=== PATIENT | male | born 1975 | race African-American/Black ===

== ENCOUNTER 2020-06-21 19:46 | Emergency (ER) | payer OTHER ==
[2020-06-21] MEDS ORDERED: SODIUM CHLORIDE 0.9% 1,000 ML IV STA (20:42)
--- NOTE | 2020-06-21 20:42 | ED Physician Documentation ---
PD HPI PED ILLNESS - Stated complaint Stated Complaint: WEAKNESS - Chief complaint Chief Complaint: General - History obtained from History obtained from: Patient - Additional information Additional information: He became acutely ill today with body aches, fever. His is also sick and she became symptomatic today as well. She was exposed to a viral illness, she cares for children. Those children tested negative for Covid though. There are 3-year-old son is also sick today. He has no underlying health problems and declines medications for his symptoms at this juncture. Review of Systems Constitutional: reports: Fever, Chills, Myalgias Nose: denies: Rhinorrhea / runny nose Respiratory: denies: Dyspnea, Cough PD PAST MEDICAL HISTORY - Present Medications Home Medications: Ambulatory Orders Medication Instructions Recorded Confirmed No Known Home Medications 06/21/20 06/21/20 - Allergies Allergies/Adverse Reactions: Allergies Allergy/AdvReac Type Severity Reaction Status Date / Time No Known Drug Allergies Allergy Verified 06/21/20 20:46 PD ED PE NORMAL - Vitals Vital signs reviewed: Yes - General General: Alert and oriented X 3, No acute distress - Neck Neck: Supple, no meningeal sign - Derm Derm: No rash - Neuro Neuro: Alert and oriented X 3, Normal speech Results - Vitals Vitals: Vital Signs - 24 hr 06/21/20 06/21/20 19:52 19:56 Temperature 38.5 C H 38.6 C H Heart Rate 101 H 82 Respiratory 20 16 Rate Blood Pressure 126/81 H 120/80 O2 Saturation 98 98 Oxygen O2 Source Room air - Labs Labs: Laboratory Tests 06/21/20 20:20 Nasal Adenovirus (PCR) NOT DETECTED Nasal B. parapertussis DNA (PCR) NOT DETECTED Nasal Coronavir 229E PCR NOT DETECTED Nasal Coronavir HKU1 PCR NOT DETECTED Nasal Coronavir NL63 PCR NOT DETECTED Nasal Coronavir OC43 PCR NOT DETECTED Nasal Enterovir/Rhinovir PCR NOT DETECTED Nasal Influenza B PCR NOT DETECTED Nasal Influenza A PCR NOT DETECTED Nasal Parainfluen 1 PCR NOT DETECTED Nasal Parainfluen 2 PCR NOT DETECTED Nasal Parainfluen 3 PCR NOT DETECTED Nasal Parainfluen 4 PCR NOT DETECTED Nasal RSV (PCR) NOT DETECTED Nasal B.pertussis DNA PCR NOT DETECTED Nasal C.pneumoniae (PCR) NOT DETECTED Alok Human Metapneumo PCR NOT DETECTED Nasal M.pneumoniae (PCR) NOT DETECTED Nasal SARS-CoV-2 (PCR) NOT DETECTED PD MEDICAL DECISION MAKING - ED course ED course: 45-year-old gentleman presents with his , seemingly a viral syndrome with fever body aches etc. Bio fire negative. Feeling better after IV fluids. Departure - Departure Disposition: 01 Home, Self Care Clinical Impression: Viral syndrome Condition: Good Record reviewed to determine appropriate education?: Yes Instructions: ED Viral Syndrome Comments: Return if worse or if not better in the next few days. Tylenol as needed for the aches and pains. Forms: Activity restrictions
[2020-06-21 21:43] LABS: C. PNEUMONIAE- RESP PCR PANEL NOT DETECTED
[2020-06-21 22:57] VITALS: BP 128/76
== END 2020-06-21 22:29 | disposition home or self-care (01) ==
LOC: ED 19:46
DX: B34.9 Viral infection, unspecified (principal); Z20.828 Contact with and (suspected) exposure to other viral communicable diseases
CPT/HCPCS: 0202U; 99282; 99283

== ENCOUNTER 2020-06-24 14:29 | Emergency (ER) | payer OTHER ==
[2020-06-24] MEDS ORDERED: SODIUM CHLORIDE 0.9% 1,000 ML IV STA ×2 (17:17→18:11)
--- NOTE | 2020-06-24 17:26 | ED Physician Documentation ---
History of Present Illness - Stated complaint Stated Complaint: FEVER,BACK PX - Chief complaint Chief Complaint: Fever PD PAST MEDICAL HISTORY - Past Medical History Past Medical History: No Musculoskeletal: Chronic back pain - Past Surgical History Past Surgical History: No - Present Medications Home Medications: Ambulatory Orders Medication Instructions Recorded Confirmed No Known Home Medications 06/21/20 06/21/20 - Allergies Allergies/Adverse Reactions: Allergies Allergy/AdvReac Type Severity Reaction Status Date / Time No Known Drug Allergies Allergy Verified 06/24/20 14:45 - Social History Does the pt smoke?: No Smoking Status: Never smoker Does the pt drink ETOH?: Yes Does the pt have substance abuse?: No - Immunizations Immunizations are current?: Yes - POLST Patient has POLST: No Results - Vitals Vitals: Vital Signs - 24 hr 06/24/20 06/24/20 14:47 16:58 Temperature 100.3 C H 98.8 C H Heart Rate 97 Respiratory 20 Rate Blood Pressure 101/71 O2 Saturation 97 Oxygen O2 Source Room air
--- NOTE | 2020-06-24 17:29 | ED Physician Documentation ---
History of Present Illness - Stated complaint Stated Complaint: FEVER,BACK PX - Chief complaint Chief Complaint: Fever - Additonal information Additional information: 45-year-old male return to the emergency department with persistent fevers myalgias chills and now diarrhea. He was seen number days ago for similar and had negative Covid testing. At that time the suspicion was that he may have a viral etiology however his symptoms have not improved since discharge home. T- max of 102.6 this afternoon for which he took Tylenol. He denies dysuria urgency or frequency. He denies any hematuria. No focal abdominal tenderness or vomiting. His diarrhea is soft and watery but nonbloody. He denies cough, congestion dyspnea or chest pain. No pertinent past surgical or medical history. He takes no routinely prescribed medications. Review of Systems Constitutional: reports: Fever, Myalgias, Fatigue Eyes: reports: Loss of vision Ears: reports: Reviewed and negative Nose: reports: Reviewed and negative Throat: reports: Reviewed and negative Cardiac: denies: Chest pain / pressure, Palpitations Respiratory: denies: Dyspnea, Cough, Hemoptysis, Wheezing GI: reports: Diarrhea. denies: Abdominal Pain, Nausea, Vomiting, Bloody / black stool : denies: Dysuria, Frequency, Hesitancy, Hematuria Skin: denies: Rash Musculoskeletal: reports: Back pain. denies: Neck pain Neurologic: denies: Generalized weakness, Numbness, Difficulty speaking, Syncope, Seizure, Headache, Head injury, LOC Psychiatric: denies: Depressed, Suicidal PD PAST MEDICAL HISTORY - Past Medical History Past Medical History: No Musculoskeletal: Chronic back pain - Past Surgical History Past Surgical History: No - Present Medications Home Medications: Ambulatory Orders Medication Instructions Recorded Confirmed No Known Home Medications 06/21/20 06/21/20 - Allergies Allergies/Adverse Reactions: Allergies Allergy/AdvReac Type Severity Reaction Status Date / Time No Known Drug Allergies Allergy Verified 06/24/20 14:45 - Social History Does the pt smoke?: No Smoking Status: Never smoker Does the pt drink ETOH?: Yes Does the pt have substance abuse?: No - Immunizations Immunizations are current?: Yes - POLST Patient has POLST: No PD ED PE EXPANDED - General General: Alert, No acute distress, Well developed/nourished - HEENT HEENT: Atraumatic, PERRL, EOMI, Moist mucous membranes, Pharynx normal. No: Swollen tonsils, Tonsillar exudate - Neck Neck: Supple w/out meningeal sx, No tenderness. No: Stiff neck, Brudzinki's, Kernig's, Adenopathy, Thyroid enlarged / mass, Soft tissue TTP, Limited ROM - Cardiac Cardiac: Regular Rate, Regular Rhythm, Radial strong equal, Pedal strong equal, Cap refill < 2 sec - Respiratory Respiratory: Clear to ausultation saloni. No: Distress, Labored - Abdomen Abdomen: Normal Bowel sounds. No: Tender to palpation - Derm Derm: Normal color. No: Rash - Neuro Neuro: Alert and Oriented X 3, CNII-XII intact - GCS Eye Opening: Spontaneous Motor: Obeys Commands Verbal: Oriented Total: 15 Results - Vitals Vitals: Vital Signs - 24 hr 06/24/20 06/24/20 06/24/20 14:47 16:58 18:21 Temperature 100.3 C H 98.8 C H 37.0 C Heart Rate 97 89 Respiratory 20 20 Rate Blood Pressure 101/71 128/77 O2 Saturation 97 99 Oxygen O2 Source Room air - Labs Labs: Laboratory Tests 06/24/20 06/24/20 06/24/20 17:29 17:29 17:29 WBC 4.6 L RBC 5.02 Hgb 14.8 Hct 44.2 MCV 88.0 MCH 29.5 MCHC 33.5 RDW 11.9 L Plt Count 97 L MPV 11.4 Neut # (Auto) 3.0 Lymph # (Auto) 1.0 L [place] # (Auto) 0.5 Eos # (Auto) 0.0 Baso # (Auto) 0.0 Absolute Nucleated RBC 0.00 Nucleated RBC % 0.0 Manual Slide Review Indicated Platelet Estimate DECREASED (<130,000) Platelet Morphology NORMAL APPEARANCE RBC Morph Micro Appear NORMAL APPEARANCE Sodium 133 L Potassium 3.8 Chloride 94 L Carbon Dioxide 26 Anion Gap 13.0 BUN 15 Creatinine 1.3 H Estimated GFR (MDRD) 72 L Glucose 104 H Lactic Acid 1.3 Calcium 8.8 Total Bilirubin 0.8 AST 60 H ALT 82 H Alkaline Phosphatase 65 Total Creatine Kinase 921 H Total Protein 7.6 Albumin 4.1 Globulin 3.5 Albumin/Globulin Ratio 1.2 Urine Color Urine Clarity Urine pH Ur Specific [place] Urine Protein Urine Glucose (UA) Urine Ketones Urine Occult Blood Urine Nitrite Urine Bilirubin Urine Urobilinogen Ur Leukocyte Esterase Urine RBC Urine WBC Ur Squamous Epith Cells Urine Bacteria Urine Mucus Urine Culture Comments 06/24/20 17:32 WBC RBC Hgb Hct MCV MCH MCHC RDW Plt Count MPV Neut # (Auto) Lymph # (Auto) [place] # (Auto) Eos # (Auto) Baso # (Auto) Absolute Nucleated RBC Nucleated RBC % Manual Slide Review Platelet Estimate Platelet Morphology RBC Morph Micro Appear Sodium Potassium Chloride Carbon Dioxide Anion Gap BUN Creatinine Estimated GFR (MDRD) Glucose Lactic Acid Calcium Total Bilirubin AST ALT Alkaline Phosphatase Total Creatine Kinase Total Protein Albumin Globulin Albumin/Globulin Ratio Urine Color YELLOW Urine Clarity CLEAR Urine pH 6.0 Ur Specific [place] 1.015 Urine Protein TRACE Urine Glucose (UA) NEGATIVE Urine Ketones 15 H Urine Occult Blood TRACE-LYSE Urine Nitrite NEGATIVE Urine Bilirubin NEGATIVE Urine Urobilinogen 1 (NORMAL) Ur Leukocyte Esterase NEGATIVE Urine RBC None Seen Urine WBC 0-3 Ur Squamous Epith Cells RARE Squamous Urine Bacteria Few Urine Mucus Marked Strands Urine Culture Comments NOT INDICATED - Rads (name of study) cxr Radiology: Final report received (No acute cardiopulmonary process) PD MEDICAL DECISION MAKING - ED course Complexity details: reviewed results, re-evaluated patient, considered differential, d/w patient ED course: This is a well-appearing 45-year-old male that presents to the emergency department with chief complaint of persistent myalgias as an new onset diarrhea. He has had the symptoms for about 5 days. He was seen in the ER 3 days ago for similar. Covid screening at that time was negative. He denies any cough. No abdominal pain or vomiting. Here in the emergency department he did have blood cultures which are pending. His urine shows no signs of infection. lactic acid normal. No tachycardia or hypotension. Patient does not present as septic. Chest x-ray shows no findings consistent with a pneumonia. Pt has no cough. He does appear mildly dehydrated with a mild creatinine elevation as well as a CK elevation of about 900. This gentleman was given 2 L of crystalloid here in the emergency department. I do at this time feel that his symptoms still suggest of viral etiology. I have encouraged good hydration at home. Emergent return precautions were discussed for worrisome or worsening symptoms. Departure - Departure Disposition: 01 Home, Self Care Clinical Impression: Febrile illness Condition: Stable Record reviewed to determine appropriate education?: Yes Comments: Bull I hope that you are feeling better soon. You were seen today for persistent fevers over the last few days. We are rescreening you for COVID-19. You will only be notified if the test is positive. Your chest x-ray looks good there is no pneumonia. Your urine shows no signs of infection. As we discussed your blood cultures are pending. On your labs it does appear that you are mildly dehydrated. We have given you 2 L of IV fluids. I would like you to drink plenty of fluids at home if at any point you are having worsening symptoms suddenly severe belly pain the fevers do not improve please return immediately to the emergency department
[2020-06-24 17:47] LABS: BASOPHILS % (AUTO) 0.4 %; HGB - HEMOGLOBIN 14.8 g/dL (14.0-18.0); LYMPHOCYTES % (AUTO) 22.2 %; MEAN CORPUSCULAR HEMOGLOBIN 29.5 pg (27.0-31.0); MEAN CORPUSCULAR HGB CONC 33.5 g/dL (32.0-36.0); MEAN PLATELET VOLUME 11.4 fL (7.4-11.4); MONOCYTES # (AUTO) 0.5 10^3/uL (0.0-1.0); MONOCYTES % (AUTO) 11.4 %; NEUTROPHILS % (AUTO) 65.6 %; PLT - PLATELET COUNT 97 10^3/uL (130-450); RED BLOOD COUNT 5.02 10^6/uL (4.70-6.10); RED CELL DISTRIBUTION WIDTH 11.9 % (12.0-15.0); WHITE BLOOD COUNT 4.6 x10^3/uL (4.8-10.8)
[2020-06-24 17:50] LABS: ALBUMIN 4.1 g/dL (3.2-5.5); ALBUMIN/GLOBULIN RATIO 1.2 (1.0-2.2); BILIRUBIN,TOTAL 0.8 mg/dL (0.2-1.0); CALCIUM 8.8 mg/dL (8.5-10.3); CREATININE 1.3 mg/dL (0.6-1.2); TOTAL PROTEIN 7.6 g/dL (6.7-8.2)
[2020-06-24 17:52] LABS: BILIRUBIN,URINE NEGATIVE (NEGATIVE); GLUCOSE, URINE (UA) NEGATIVE (NEGATIVE); KETONES,URINE (UA) 15 mg/dL (NEGATIVE); LEUKOCYTE ESTERASE, URINE NEGATIVE (NEGATIVE); NITRITE,URINE NEGATIVE (NEGATIVE); OCCULT BLOOD,URINE TRACE-LYSE (NEGATIVE); PROTEIN,URINE TRACE mg/dL (NEGATIVE); UROBILINOGEN,URINE 1 (NORMAL) E.U./dL (NORMAL)
[2020-06-24 17:53] LABS: CLARITY,URINE CLEAR (CLEAR)
[2020-06-24 18:01] LABS: BACTERIA,URINE Few /HPF (None Seen); MUCUS,URINE Marked Strands; RBC,URINE None Seen /HPF (0-5); SQUAMOUS EPITHELIAL CELL,UR RARE Squamous (<= Few)
--- NOTE | 2020-06-24 18:31 | XRAY Report ---
PROCEDURE: Chest 1 View X-Ray INDICATIONS: chest pain TECHNIQUE: One view of the chest was acquired. COMPARISON: None. FINDINGS: Surgical changes and devices: None. Lungs and pleura: No pleural effusions or pneumothorax. Lungs are clear. Mediastinum: Mediastinal contours appear normal. Heart size is normal. Bones and chest wall: No suspicious bony lesions. Overlying soft tissues appear unremarkable. IMPRESSION: No acute cardiopulmonary abnormality. Reviewed by: Livan Leon MD on 06/24/2020 6:30 PM [facility] Approved by: Livan Leon MD on 06/24/2020 6:30 PM [facility] Station ID: [id number]
[2020-06-24 18:36] LABS: PLATELET ESTIMATE, MANUAL DECREASED (<130,000) (NORMAL); PLATELET MORPHOLOGY NORMAL APPEARANCE (NORMAL); RBC MORPHOLOGY (MULTIPLE) NORMAL APPEARANCE (NORMAL)
[2020-06-24 20:04] VITALS: BP 137/100
[2020-06-24 20:21] LABS: C. PNEUMONIAE- RESP PCR PANEL NOT DETECTED
== END 2020-06-24 20:04 | disposition home or self-care (01) ==
LOC: ED 14:29
DX: R50.9 Fever, unspecified (principal); E86.0 Dehydration; M79.10 Myalgia, unspecified site; R19.7 Diarrhea, unspecified; Z20.828 Contact with and (suspected) exposure to other viral communicable diseases
CPT/HCPCS: 0202U; 36415; 71045; 80053; 81001; 82550; 83605; 85025; 87040; 96360; 96361; 99284; 87086

== ENCOUNTER 2023-11-21 14:15 | Outpatient (CLI) | payer OTHER | END 2023-11-21 14:30 | disposition home or self-care (01) | LOC: LAB.N 14:15 | PROVIDERS: ATTEND Physician Assistant Medical | DX: J02.9 Acute pharyngitis, unspecified (principal) | CPT/HCPCS: 87070 ==